=== PATIENT | female | born 1965 | race Caucasian/White ===

== ENCOUNTER → 2016-05-01 | Outpatient (CLI) | payer MEDICARE, OTHER ==
--- NOTE | 2016-05-05 10:22 | MM ---
Reason for exam: screening (asymptomatic). Last mammogram was performed 4 years and 9 months ago. History: Patient is postmenopausal. Physical Findings: A clinical breast exam by your physician is recommended on an annual basis and results should be correlated with mammographic findings. MG 3D Screening Mammo W/Cad Bilateral CC and MLO view(s) were taken. Prior study comparison: July 22, 2011, mammogram, performed at [facility]. The breast tissue is heterogeneously dense. This may lower the sensitivity of mammography. There is nodularity bilaterally. This finding is changed when compared with previous exams. ASSESSMENT: Incomplete: need additional imaging evaluation, BI-RAD 0 RECOMMENDATION: Ultrasound of both breasts. [facility] will attempt to contact patient to return for ultrasound.
== END | disposition home or self-care (01) ==
LOC: RADMAMWWP 16:28
PROVIDERS: ATTEND Family Medicine
DX: Z12.31 Encounter for screening mammogram for malignant neoplasm of breast (principal)
CPT/HCPCS: 77063; G0202

== ENCOUNTER → 2016-05-19 | Outpatient (CLI) | payer MEDICARE, OTHER ==
--- NOTE | 2016-05-20 08:27 | USB ---
Reason for exam: additional evaluation requested from abnormal screening. History: Patient is postmenopausal. Physical Findings: Nurse did not find any significant physical abnormalities on exam. US Breast Workup Limited SARA Left breast ultrasound includes all four quadrants, the retroareolar region and axilla. Finding demonstrates a 0.6 x 0.3 x 0.4cm oval, lesion too small to characterize at 12 o'clock and a 0.5 x 0.3 x 0.4cm oval, lesion too small to characterize at 10 o'clock with septation. Some of the nodular areas laterally no appreciated by ultrasound. A 6 month follow up mammogram recommended. Right breast ultrasound demonstrates a 0.6 x 0.3 x 0.4cm oval, cystic lesion at 12 o'clock, benign. A 6 month follow up recommended. ASSESSMENT: Probably benign, BI-RAD 3 RECOMMENDATION: Follow-up diagnostic mammogram of both breasts in 6 months.
== END | disposition home or self-care (01) ==
LOC: RADUSWWP 14:48
PROVIDERS: ATTEND Family Medicine
DX: R92.8 Other abnormal and inconclusive findings on diagnostic imaging of breast (principal)

== ENCOUNTER → 2017-02-16 | Outpatient (CLI) | payer MEDICARE, OTHER ==
--- NOTE | 2017-02-16 13:29 | XR ---
EXAMINATION TYPE: XR chest 2V DATE OF EXAM: 02/16/2017 COMPARISON: NONE HISTORY: Shortness of breath TECHNIQUE: Frontal and lateral views of the chest are obtained. FINDINGS: Scattered senescent parenchymal changes noted. Hyperinflation compatible with COPD. No evidence for infiltrate. No evidence for atelectasis. Heart size is stable. Mediastinal structures are stable and grossly unremarkable. No evidence for hilar prominence. Degenerative changes dorsal spine. IMPRESSION: 1. No evidence for acute pulmonary disease.
== END | disposition home or self-care (01) ==
LOC: RADXRMAIN 13:07
PROVIDERS: ATTEND Family Medicine
DX: R06.2 Wheezing (principal)
CPT/HCPCS: 71020

== ENCOUNTER → 2017-06-15 | Outpatient (CLI) | payer MEDICARE, OTHER ==
--- NOTE | 2017-06-17 09:00 | MM ---
Reason for exam: screening (asymptomatic). Last mammogram was performed 1 year and 1 month ago. History: Patient is postmenopausal. Physical Findings: A clinical breast exam by your physician is recommended on an annual basis and results should be correlated with mammographic findings. MG 3D Screening Mammo W/Cad Bilateral CC and MLO view(s) were taken. Prior study comparison: May 01, 2016, bilateral MG 3d screening mammo w/cad. July 22, 2011, mammogram, performed at [facility]. The breast tissue is heterogeneously dense. This may lower the sensitivity of mammography. Increased nodularity in size and number in the left breast. This finding is changed when compared with previous exams. ASSESSMENT: Incomplete: need additional imaging evaluation, BI-RAD 0 RECOMMENDATION: Ultrasound of the left breast. [facility] will attempt to contact patient to return for ultrasound.
== END | disposition home or self-care (01) ==
LOC: RADMAMWWP 13:56
PROVIDERS: ATTEND Family Medicine
DX: Z12.31 Encounter for screening mammogram for malignant neoplasm of breast (principal)
CPT/HCPCS: 77063; 77067

== ENCOUNTER → 2017-06-28 | Outpatient (CLI) | payer MEDICARE, OTHER ==
--- NOTE | 2017-06-29 08:24 | USB ---
Reason for exam: additional evaluation requested from abnormal screening. History: Patient is postmenopausal. Physical Findings: Nurse Summary: prominent nodularity left breast upper outer quadrant all soft, movable (nurse ts). US Breast Workup LT Left breast ultrasound includes all four quadrants, the retroareolar region and axilla. Finding demonstrates a 5 x 3 x 5mm oval lesion at 12 o'clock, a 5 x 2 x 4mm oval lesion too small to charcterize at 3 o'clock, a 2 x 2 x 3mm oval lesion too small to charcterize at 5 o'clock and a 4 x 4 x 3mm oval, mixed lesion too small to characterize at 9 o'clock. These results were verbally communicated with the patient and result sheet given to the patient on 06/28/17. ASSESSMENT: Probably benign, BI-RAD 3 RECOMMENDATION: Follow-up diagnostic mammogram and ultrasound of the left breast in 6 months.
== END | disposition home or self-care (01) ==
LOC: RADUSWWP 15:46
PROVIDERS: ATTEND Family Medicine
DX: R92.8 Other abnormal and inconclusive findings on diagnostic imaging of breast (principal)

== ENCOUNTER 2017-07-11 18:07 | Emergency (ER) | payer MEDICARE, OTHER ==
[2017-07-11] MEDS ORDERED: ONDANSETRON 4 MG/2 ML VIAL IVP STA (18:25)
[2017-07-11] MEDS ORDERED: SODIUM CHLORIDE 0.9% 500 ML IV ONE (18:25)
[2017-07-11] MEDS ORDERED: LORazepam 2 MG/ML INJ IV STA (18:25)
[2017-07-11] MEDS ORDERED: KETOROLAC 30 MG/ML 1 ML VIAL IVP STA (18:25)
--- NOTE | 2017-07-11 18:34 | ED ---
Nausea/Vomiting/Diarrhea HPI - General Chief complaint: Nausea/Vomiting/Diarrhea Stated complaint: Vomiting Time Seen by Provider: 07/11/17 18:16 Source: patient, family Mode of arrival: wheelchair Limitations: no limitations - History of Present Illness Initial comments: 51-year-old female patient presents to the emergency department today for evaluation of anxiety and vomiting. Patient states that she was unable to sleep last night because she is out of 1 her psychiatric medications. Patient states when she doesn't sleep she becomes anxious. Patient states when she becomes anxious, she vomits. Patient states that she has been vomiting since 4: 00pm. Patient states that she has been having sweats with this. She denies any abdominal pain, chest pain, shortness of breath, dizziness, or weakness. Patient states that she has a history of this she has had to come into the hospital help manage her symptoms before. She denies any suicidal or homicidal ideation. She denies any use of street drugs. Patient denies any recent rash, fever, chills, diarrhea, constipation, back pain, numbness, tingling, hematuria , dysuria, urinary urgency, urinary frequency, visual changes, or any other complaints. - Related Data Home Medications Medication Instructions Recorded Confirmed DULoxetine HCL [Cymbalta] 60 mg PO QAM 09/27/14 01/05/15 Ondansetron HCl [Zofran] 4 mg PO Q8HR PRN 09/27/14 01/05/15 QUEtiapine XR [SEROquel XR] 100 mg PO HS 09/27/14 01/05/15 Temazepam [Restoril] 15 mg PO HS PRN 09/27/14 01/05/15 lamoTRIgine [LaMICtal] 100 mg PO BID 09/27/14 01/05/15 traZODone HCL [Desyrel] 50 mg PO HS 09/27/14 01/05/15 valACYclovir [Valtrex] 500 mg PO DAILY PRN 09/27/14 01/05/15 Previous Rx's Medication Instructions Recorded Cyclobenzaprine [Flexeril] 5 mg PO TID PRN #15 tablet 01/05/15 Hydrocodone/Acetaminophen [Preston 1 each PO Q6HR PRN #20 tab 01/05/15 5-325] methylPREDNISolone [Medrol] 1 pack PO DIRECTED #1 tab.ds.pk 01/05/15 Allergies Allergy/AdvReac Type Severity Reaction Status Date / Time codeine Allergy jittery,hyp Verified 07/11/17 18:14 eractivity Penicillins Allergy Unknown Verified 07/11/17 18:14 Sulfa (Sulfonamide Allergy Unknown Verified 07/11/17 18:14 Antibiotics) Review of Systems ROS Statement: Those systems with pertinent positive or pertinent negative responses have been documented in the HPI. ROS Other: All systems not noted in ROS Statement are negative. Past Medical History Past Medical History: Asthma Additional Past Medical History / Comment(s): MIGRAINES,VOMITS WHEN NERVOUS, INTERMITTENT LS STOOLS History of Any Multi-Drug Resistant Organisms: None Reported Past Surgical History: Hysterectomy, Tonsillectomy Additional Past Surgical History / Comment(s): C SECT X 2 Past Anesthesia/Blood Transfusion Reactions: Motion Sickness Past Psychological History: Bipolar Smoking Status: Current every day smoker Past Alcohol Use History: None Reported Past Drug Use History: Marijuana - Past Family History Mother Family Medical History: Cancer, Hypertension Additional Family Medical History / Comment(s): HEART PROBLEMS,MELANOMA,SHINGLES Father Family Medical History: Dementia Additional Family Medical History / Comment(s): HEART PROBLEMS General Exam Limitations: no limitations General appearance: alert, in no apparent distress, anxious, other (This is a well-developed, well-nourished adult female patient who is quite anxious. Vital signs upon presentation are temperature 97.7F, pulse 71, respirations 18 , blood pressure 190/96, pulse ox 100% on room air.) Eye exam: Present: normal appearance, PERRL, EOMI. Absent: scleral icterus, conjunctival injection, periorbital swelling ENT exam: Present: normal exam, normal oropharynx, mucous membranes moist Respiratory exam: Present: normal lung sounds bilaterally. Absent: respiratory distress, wheezes, rales, rhonchi, stridor Cardiovascular Exam: Present: regular rate, normal rhythm, normal heart sounds. Absent: systolic murmur, diastolic murmur, rubs, gallop, clicks GI/Abdominal exam: Present: soft, normal bowel sounds. Absent: distended, tenderness, guarding, rebound, rigid Neurological exam: Present: alert, oriented X3, CN II-XII intact Psychiatric exam: Present: anxious Skin exam: Present: warm, intact, normal color, diaphoretic. Absent: dry, rash Course Vital Signs 07/11/17 18:11 Temperature 97.7 F Pulse Rate 71 Respiratory 18 Rate Blood Pressure 190/96 O2 Sat by Pulse 100 Oximetry Medical Decision Making - Medical Decision Making 51-year-old female patient presented to the emergency department today for evaluation of anxiety and vomiting. Physical examination was unremarkable. Patient was quite anxious upon initial evaluation, shaking, and crying. Labs were reviewed and were unremarkable. EKG showed normal sinus rhythm. Troponin and cardiac profile are negative. Patient was given 1 mg of Ativan and nausea medicine here in the department. Upon reevaluation she is feeling much improved. She believes this may be related to losing sleep last night and missing her nightly dose of Seroquel. I do believe that her symptoms were mostly related to anxiety. She will be given a dose of Seroquel here tonight and will fill her prescription tomorrow. She is instructed to follow up with her primary care physician for recheck in 1-2 days. Return parameters discussed in detail. She verbalizes understanding and agrees with this plan. - Lab Data Result diagrams: 07/11/17 18:41 07/11/17 18:41 Lab Results 07/11/17 07/11/17 07/11/17 Range/Units 18:41 18:41 18:41 WBC 10.1 (3.8-10.6) k/uL RBC 5.90 H (3.80-5.40) m/uL Hgb 17.3 H (11.4-16.0) gm/dL Hct 51.1 H (34.0-46.0) % MCV 86.7 (80.0-100.0) fL MCH 29.3 (25.0-35.0) pg MCHC 33.8 (31.0-37.0) g/dL RDW 12.1 (11.5-15.5) % Plt Count 222 (150-450) k/uL Neutrophils % 77 % Lymphocytes % 15 % Monocytes % 4 % Eosinophils % 3 % Basophils % 0 % Neutrophils # 7.7 (1.3-7.7) k/uL Lymphocytes # 1.5 (1.0-4.8) k/uL Monocytes # 0.4 (0-1.0) k/uL Eosinophils # 0.3 (0-0.7) k/uL Basophils # 0.0 (0-0.2) k/uL Sodium 147 H (137-145) mmol/L Potassium 4.2 (3.5-5.1) mmol/L Chloride 106 (98-107) mmol/L Carbon Dioxide 24 (22-30) mmol/L Anion Gap 17 mmol/L BUN 14 (7-17) mg/dL Creatinine 0.80 (0.52-1.04) mg/dL Est GFR (CKD-EPI)AfAm >90 (>60 ml/min/1.73 sqM) Est GFR (CKD-EPI)NonAf 85 (>60 ml/min/1.73 sqM) Glucose 140 H (74-99) mg/dL Calcium 10.6 H (8.4-10.2) mg/dL Total Bilirubin 1.2 (0.2-1.3) mg/dL AST 28 (14-36) U/L ALT 39 (9-52) U/L Alkaline Phosphatase 157 H (38-126) U/L Total Creatine Kinase 137 H (30-135) U/L CK-MB (CK-2) 1.2 (0.0-2.4) ng/mL CK-MB (CK-2) Rel Index 0.9 Troponin I <0.012 (0.000-0.034) ng/mL Total Protein 7.9 (6.3-8.2) g/dL Albumin 5.1 H (3.5-5.0) g/dL Amylase 86 (30-110) U/L Lipase 146 (23-300) U/L - EKG Data -: EKG Interpreted by Me EKG Comments: EKG obtained at 192 shows normal sinus rhythm with a sinus arrhythmia. Ventricular rate is 72, [place] interval 138, QR yarsanism 70, QTC 418, QTC 457. No evidence of ST elevation or depression. Disposition Clinical Impression: Anxiety, Vomiting Disposition: HOME SELF-CARE Condition: Good Instructions: Acute Nausea and Vomiting (ED), Anxiety (ED) Additional Instructions: Increase fluids. Take medications as directed. Follow-up with your primary care physician for recheck in 1-2 days. Return here immediately for any new, worsening, or concerning symptoms. Is patient prescribed a controlled substance at d/c from ED?: No Referrals: Jaymie Todd MD [Primary Care Provider] - 1-2 days Time of Disposition: :00
[2017-07-11 18:56] LABS: Basophils % (A) 0 %; Eosinophils # (A) 0.3 k/uL (0-0.7); Eosinophils % (A) 3 %; HCT 51.1 % (34.0-46.0); HGB 17.3 gm/dL (11.4-16.0); Lymphocytes # (A) 1.5 k/uL (1.0-4.8); Lymphocytes % (A) 15 %; MCH 29.3 pg (25.0-35.0); MCHC 33.8 g/dL (31.0-37.0); MCV 86.7 fL (80.0-100.0); Mean Platelet Volume 6.7; Monocytes # (A) 0.4 k/uL (0-1.0); Monocytes % (A) 4 %; Neutrophils # (A) 7.7 k/uL (1.3-7.7); Neutrophils % (A) 77 %; Platelet Count 222 k/uL (150-450); RDW 12.1 % (11.5-15.5); WBC 10.1 k/uL (3.8-10.6)
[2017-07-11 18:58] LABS: ALT 39 U/L (9-52); AST 28 U/L (14-36); Albumin 5.1 g/dL (3.5-5.0); Alkaline Phosphatase 157 U/L (38-126); Amylase 86 U/L (30-110); Anion Gap 17 mmol/L; Blood Urea Nitrogen 14 mg/dL (7-17); Calcium 10.6 mg/dL (8.4-10.2); Carbon Dioxide 24 mmol/L (22-30); Chloride 106 mmol/L (98-107); Glucose 140 mg/dL (74-99); Lipase 146 U/L (23-300); Potassium 4.2 mmol/L (3.5-5.1); Sodium 147 mmol/L (137-145); Total Bilirubin 1.2 mg/dL (0.2-1.3); Total Protein 7.9 g/dL (6.3-8.2)
[2017-07-11 19:08] LABS: Creatine Kinase 137 U/L (30-135)
[2017-07-11 19:21] LABS: Creatine Kinase MB 1.2 ng/mL (0.0-2.4); Troponin I <0.012 ng/mL (0.000-0.034)
[2017-07-11] MEDS ORDERED: QUEtiapine 50 MG TAB PO STA (19:56)
[2017-07-11] MEDS ORDERED: QUEtiapine 100 MG TAB PO STA (19:56)
[2017-07-11 20:36] VITALS: BP 145/80; PULSE 73; RESP 16; TEMP 97
== END 2017-07-11 20:38 | disposition home or self-care (01) ==
LOC: EC 18:07
DX: F41.9 Anxiety disorder, unspecified (principal); R11.10 Vomiting, unspecified; F31.9 Bipolar disorder, unspecified; F17.200 Nicotine dependence, unspecified, uncomplicated; Z79.899 Other long term (current) drug therapy; Z88.0 Allergy status to penicillin; Z88.5 Allergy status to narcotic agent; Z88.2 Allergy status to sulfonamides
CPT/HCPCS: 36415; 93005; 80053; 82150; 82550; 82553; 83690; 84484; 85025; 99284; 96374; 96375 ×2; 96361 ×2; J2060; J2405; J1885

== ENCOUNTER → 2024-02-21 | Outpatient (CLI) | payer MEDICARE, OTHER ==
[2024-02-21 15:01] VITALS: BP 124/82; PULSE 114; RESP 12; TEMP 97.7
--- NOTE | 2024-02-21 15:19 | P.SLEEP ---
History of Present Illness DATE: 02/21/2024 CONSULTATION/NEW PATIENT EVALUATION HISTORY OF PRESENT ILLNESS/SLEEP-WAKE EVALUATION: 58 years old lady had been evaluated in the sleep center for possible obstructive sleep apnea hypopnea syndrome. SLEEP SCHEDULE: Usually sleep schedule from 12:30 AM until 93068 PM 7 days a week. FALLING ASLEEP: Patient has difficulties with falling asleep, although no TV in bedroom. DURING SLEEP: Patient usually sleeps on the side position with snoring and multiple movements during the sleep. No history of hypnogogical hallucinations, sleep paralysis, or cataplexy. DURING THE DAY/WAKE STATE: No significant excessive daytime sleepiness. Edwards sleepiness scale is 1. Patient usually does not take naps. PAST MEDICAL HISTORY: Bipolar. PAST SURGICAL HISTORY: Tonsillectomy, x 2, total hysterectomy. MEDICATIONS: Please see below. SOCIAL HISTORY: Please see below. FAMILY HISTORY: Hypertension, mental illness. REVIEW OF SYSTEMS: []. No fevers. No double vision. No recent chest pain. No shortness of breath. No abdominal pain. No bleeding episodes. No blood in urine. No seizure episodes. PHYSICAL EXAMINATION: GENERAL: A pleasant patient without any distress. VITAL SIGNS: Please see below, weight 153.8 pounds, BMI 20.2. HEENT: PERRLA, EOMI. Evaluation of oropharynx showed tongue protrudes midline, low position of soft palate Mallampati 4. Significant restriction of nasal breathing bilaterally NECK: Supple. No JVD. Thyroid is not palpable. 13.5 inches in circumference. LUNGS: Clear to percussion and to auscultation. Good air exchange. No wheezing or rhonchi. HEART: S1, S2 regular. No murmurs, gallops or rubs. ABDOMEN: Soft and nontender. Bowel sounds are present. No organomegaly appreciated. EXTREMITIES: No clubbing or cyanosis. SU[employer]ING: Awake, alert, and oriented x3. Cranial nerves 2 to 7 intact. There is no fasciculation or atrophy noted. No focal deficits observed. ASSESSMENT: 1. Episodes of panic attacks during sleep, snoring, extremely low position of soft palate Mallampati 4, significant restriction of nasal breathing. Obstructive sleep apnea hypopnea syndrome. 2. Significant amount of movements during the sleep, periodic limb movements. 3. Bipolar. 4. Significant restriction of nasal breathing bilaterally. 5 status post tonsillectomy. 6 . Status post x 2. 7. Status post total hysterectomy. PLAN: 1. Polysomnography for evaluation of patient's breathing during sleep and to check for possible periodic limb movements. 2. Following plan after reading sleep study. 3. Preferable position during sleep on the side. 4. No driving if patient feels any sleepiness. Patient is aware of civil and criminal liability for unsafe driving. 5. Sleep hygiene with regular sleep time for at least 7.5-8 hours. 6. Watching weight. Thank you very much for referring this patient for consultation. Sincerely, Nilo Narayan MD, PhD, FAASM. Diplomat of [employer], Sleep Medicine Board by [employer] Psychology Clinician [facility] [place] cc: Houston Iqbal MD Past Medical History Past Medical History: Asthma, COPD, GERD/Reflux, Thyroid Disorder Additional Past Medical History / Comment(s): MIGRAINES, STATES EPISODE OF FAST HEART RATE WITH HIGH BLOOD PRESSURE- RELATED TO PANIC ATTACK., CONSTIPATION History of Any Multi-Drug Resistant Organisms: None Reported Past Surgical History: Hysterectomy, Tonsillectomy Additional Past Surgical History / Comment(s): C SECT X 2, egd , colonoscopy, Hysterectomy due to benign tumor. Past Anesthesia/Blood Transfusion Reactions: No Reported Reaction Additional Past Anesthesia/Blood Transfusion Reaction / Comment(s): occasionally will wake up screaming or crying . Past Psychological History: Anxiety, Bipolar, Depression, Panic Disorder Additional Psychological History / Comment(s): . Smoking Status: Current every day smoker, Heavy tobacco smoker Past Alcohol Use History: None Reported Additional Past Alcohol Use History / Comment(s): STARTED SMOKING 1978, SMOKES 1 PPD. Past Drug Use History: Marijuana Additional Drug Use History / Comment(s): MEDICAL MARIJUANA-USES DAILY FOR MIGRAINES. - Past Family History Mother Family Medical History: Cancer, Hypertension Additional Family Medical History / Comment(s): HEART PROBLEMS,MELANOMA,SHINGLES Father Family Medical History: Dementia Additional Family Medical History / Comment(s): HEART PROBLEMS Medications and Allergies Home Medications Medication Instructions Recorded Confirmed Type DULoxetine HCL [Cymbalta] 60 mg PO QAM 09/27/14 02/21/24 History lamoTRIgine [LaMICtal] 100 mg PO BID 09/27/14 02/21/24 History traZODone HCL [Desyrel] 50 mg PO HS 09/27/14 02/21/24 History Atorvastatin [Lipitor] 10 mg PO DAILY 03/30/22 02/21/24 History Famotidine [Pepcid] 20 mg PO BID 03/30/22 02/21/24 History QUEtiapine FUMARATE [SEROquel XR] 150 mg PO HS 03/30/22 02/21/24 History clonazePAM [Klonopin ODT] 0.25 mg PO DIRECTED PRN 03/30/22 02/21/24 History polyethylene glycoL 3350 [Miralax] 17 gm PO DAILY PRN 02/21/24 02/21/24 History valACYclovir HCL [Valtrex] 500 mg PO DAILY PRN 02/21/24 02/21/24 History Allergies Allergy/AdvReac Type Severity Reaction Status Date / Time codeine Allergy hyperactivi Verified 04/23/22 10:16 ty Penicillins Allergy jittery Verified 04/23/22 10:16 Sulfa (Sulfonamide Allergy Unknown Verified 04/23/22 10:16 Antibiotics) tramadol AdvReac Unknown laryngitis Verified 04/23/22 10:16 Physical Exam Vitals: Vital Signs Temp Pulse Resp BP Pulse Ox 02/21/24 14:59 97.7 F 114 H 12 124/82 99 Intake and Output 02/21/24 02/21/24 02/21/24 06:59 14:59 22:59 Other: Weight 69.4 kg Sleep Note - Sleep Data ESS Total: 1 - Sleep Note Sleep Note: Temperature: 97.7 F Pulse Rate: 114 Respiratory Rate: 12 Blood Pressure: 124/82 SpO2: 99 Height: 5 ft 4 in Weight: 69.4 kg BMI: Neck Circumference: 13.5
== END ==
LOC: 3 N SLEEP 14:01
PROVIDERS: ATTEND Internal Medicine
DX: G47.33 Obstructive sleep apnea (adult) (pediatric) (principal); G47.61 Periodic limb movement disorder; F31.9 Bipolar disorder, unspecified; F41.0 Panic disorder [episodic paroxysmal anxiety]; F17.200 Nicotine dependence, unspecified, uncomplicated; Z98.890 Other specified postprocedural states; Z90.89 Acquired absence of other organs; Z90.710 Acquired absence of both cervix and uterus; Z88.5 Allergy status to narcotic agent; Z88.0 Allergy status to penicillin; Z88.2 Allergy status to sulfonamides
CPT/HCPCS: 99211

== ENCOUNTER 2024-03-29 19:50 | Outpatient (CLI) | payer MEDICARE, OTHER ==
--- NOTE | 2024-03-30 11:27 | P.PCN ---
Description of Procedure: POLYSOMNOGRAPHY REPORT PROCEDURE(S)/DATE(S): Polysomnography 03/29/2024 CLINICAL: Patient has been seen in the sleep center for evaluation of obstructive sleep apnea-hypopnea syndrome. Please see my consultation. Sleep study has been done for evaluation of patient breathing during the sleep. PROCEDURE: The standard montage for clinical polysomnography included the electroencephalogram, the electrooculogram, the mentalis surface electromyography and Lead II cardiography. The respiratory battery consisted of measurements of nasal/buccal air flow, pressure transducer measurements from nose, thoracic and/or abdominal effort and intercostal surface electromyography. Video monitoring has been done to check for any parasomnia events. Nocturnal oxyhemoglobin saturations were obtained by finger oximetry. Step-pimentel titration with positive airway pressure was utilized to control the respiratory events, if necessary. RESULTS: During the diagnostic sleep study sleep efficiency was decreased to 79.2%. Latency to sleep onset was prolonged to 39.5 min. Sleep architecture showed stage NI was increased to 17.2%, Delta sleep was absent 0%, REM sleep was normal 27.1%. Respiratory channel showed 0 obstructive apneas, 0 mixed apneas, 0 central apneas, 3 hypopneas with lowest oxygen level 86%. Total apnea hypopnea index was 0.6. Oxygen level was below 89% for 21 minutes and below or equal 88% for 9.2 minutes according to computer calculation. Heart rate was in the range between 78 and 87, average 82. EMG showed 5.0 periodic limb movements per hour with 0.6 micro-arousals per hour. IMPRESSIONS: 1. No significant sleep apnea or hypopneas documented. 2. No significant periodic limb movements have been documented. 3. Snoring have been documented. 4. Oxygen level was below normal range. Please see other impressions from consultation PLAN: 1. I will see patient for follow-up visit to explain results of the test and recommendations. 2. Patient will need pulmonary evaluation for possible COPD, smoking cessation program, if necessary oxygen supplement. 3. Sleep hygiene with regular time in bed for at least 7-1/2 hours. 4. No driving if feeling sleepiness. Thank you very much for allowing me to participate in the management of your patient. Sincerely, Nilo Narayan MD, PhD, FAASM. Diplomat of [employer], Sleep Medicine Board by [employer] Reference Library Assistant of [facility] [place] cc: Houston Chaudhary MD
== END 2024-03-30 08:30 | disposition home or self-care (01) ==
LOC: 3 N SLEEP 19:50
PROVIDERS: ATTEND Internal Medicine
DX: R06.83 Snoring (principal); F17.210 Nicotine dependence, cigarettes, uncomplicated; Z88.0 Allergy status to penicillin; Z88.2 Allergy status to sulfonamides; Z88.5 Allergy status to narcotic agent
CPT/HCPCS: 95810